=== PATIENT | female | born 2000 | race African-American/Black ===

== ENCOUNTER 2021-01-31 20:46 | Inpatient (IN) ==
[2021-01-31 21:33] LABS: ABS Eosinophils 0.1 10^3/ul (0-0.6); ABS Lymphocytes 2.1 10^3/ul (1.0-4.8); ABS Monocytes 0.7 10^3/ul (0-0.8); ABS Neutrophils 6.4 10^3/ul (1.5-7.7); Eosinophil % 1.1 %; Hematocrit 43 % (35-47); Hemoglobin 14.5 g/dL (12.0-16.0); Lymphocyte % 22.7 %; Mean Corpuscular HGB Conc 34 g/dL (31-36); Mean Corpuscular Hemoglobin 29 pg (27-31); Mean Corpuscular Volume 86 fL (80-97); Mean Platelet Volume 8.1 fL (7.4-10.4); Platelet Count 289 10^3/uL (150-450); Red Blood Count 5.03 10^6 /uL (3.70-4.87); Red Cell Distribution Width 14 % (10-15); White Blood Count 9.4 10^3/uL (3.5-10.8)
[2021-01-31 21:37] LABS: Urine Appearance Cloudy; Urine Bilirubin Negative (Negative); Urine Blood 3+ (Negative); Urine Color Yellow; Urine Glucose Negative (Negative); Urine Ketones 1+ (Negative); Urine Nitrite Positive (Negative); Urine Protein 1+(30 mg/dL) (Negative); Urine Specific Gravity 1.023 (1.002-1.030); Urine Urobilinogen Negative (Negative)
[2021-01-31 21:51] LABS: Acetaminophen < 15 mcg/mL; Alcohol, S < 13 mg/dL (<13); Salicylate < 2.50 mg/dL (<30); Urine Benzodiazepine Screen None Detected (None Detect); Urine Cannabinoids Screen None Detected (None Detect); Urine Opiates Screen None Detected (None Detect)
[2021-01-31 21:54] LABS: ALT 6 U/L (7-52); AST 12 U/L (13-39); Albumin/Globulin Ratio 1.6 (1-3); Alkaline Phosphatase 75 U/L (35-149); Anion Gap 8 mmol/L (2-11); Blood Urea Nitrogen 8 mg/dL (6-24); CO2 Carbon Dioxide 29 mmol/L (22-32); Calcium 10.4 mg/dL (8.6-10.3); Chloride 102 mmol/L (101-111); Globulin 3.2 g/dL (2-4); Glucose 83 mg/dL (70-100); Potassium 3.7 mmol/L (3.5-5.0); Sodium 139 mmol/L (135-145); Total Protein 8.2 g/dL (6.4-8.9); eGFR CKD-EPI 129.5 (>60)
[2021-01-31 21:57] LABS: Urine Bacteria 1+ (Absent); Urine Red Blood Cell 3+(>10/hpf) (Absent); Urine Squamous Epithelial Cell Present (Absent); Urine White Blood Cell 2+(11-20/hpf) (Absent)
[2021-01-31 22:01] LABS: HCG Pregnancy < 0.60 mIU/mL
[2021-01-31 22:06] LABS: TSH Ultra Thyroid Stim Horm 1.12 mcIU/mL (0.34-5.60)
[2021-02-01] MEDS ORDERED: Al Hydrox/Mg Hydrox/Simet LIQ 30 ML UDC PO PRN (06:50)
[2021-02-01] MEDS: Vitamin THERAPEUTIC TAB PO SCH (09:40)
[2021-02-02] MEDS: Vitamin THERAPEUTIC TAB PO SCH (07:26)
[2021-02-02 08:13] LABS: HDL Cholesterol 58.7 mg/dL
[2021-02-03] MEDS: Vitamin THERAPEUTIC TAB PO SCH (08:02)
[2021-02-03] MEDS ORDERED: Flu vaccine *QUAD* 2021-22* 0.5 ML SYRINGE IM ONE (10:00)
[2021-02-03] MEDS: Sulfamethox/Trimethoprim DS TAB 800/160 mg PO SCH (21:48)
[2021-02-04] MEDS: Sulfamethox/Trimethoprim DS TAB 800/160 mg PO SCH ×2 (09:19→21:20)
[2021-02-04] MEDS: Vitamin THERAPEUTIC TAB PO SCH (09:19)
[2021-02-04] MEDS ORDERED: Flu vaccine *QUAD* 2021-22* 0.5 ML SYRINGE IM ONE (10:00)
[2021-02-05] MEDS: Vitamin THERAPEUTIC TAB PO SCH (09:07)
[2021-02-05] MEDS: Sulfamethox/Trimethoprim DS TAB 800/160 mg PO SCH ×2 (09:07→19:53)
[2021-02-06 08:42] VITALS: BP 116/63
[2021-02-06] MEDS: Vitamin THERAPEUTIC TAB PO SCH (09:09)
[2021-02-06] MEDS: Sulfamethox/Trimethoprim DS TAB 800/160 mg PO SCH (09:09)
== END 2021-02-06 14:00 | disposition home or self-care (01) | DRG 885 ==
LOC: ED 20:46 → BSU 02-01 05:46
PROVIDERS: ADMIT Psychiatry & Neurology Psychiatry; ATTEND Psychiatry & Neurology Psychiatry

== ENCOUNTER 2022-05-08 19:15 | Inpatient (IN) ==
[2022-05-08 20:44] LABS: ABS Basophils 0.1 10^3/ul (0-0.2); ABS Eosinophils 0.3 10^3/ul (0-0.6); ABS Lymphocytes 3.1 10^3/ul (1.0-4.8); ABS Monocytes 0.7 10^3/ul (0-0.8); ABS Neutrophils 7.8 10^3/ul (1.5-7.7); Eosinophil % 2.4 %; Hematocrit 40 % (35-47); Hemoglobin 13.3 g/dL (12.0-16.0); Lymphocyte % 26.1 %; Mean Corpuscular HGB Conc 33 g/dL (31-36); Mean Corpuscular Hemoglobin 28 pg (27-31); Mean Corpuscular Volume 85 fL (80-97); Mean Platelet Volume 7.9 fL (7.4-10.4); Nucleated Red Blood Cells % 0.1; Platelet Count 280 10^3/uL (150-450); Red Blood Count 4.71 10^6 /uL (3.70-4.87); Red Cell Distribution Width 14 % (10-15); White Blood Count 11.9 10^3/uL (3.5-10.8)
[2022-05-08 21:14] LABS: ALT 9 U/L (7-52); AST 14 U/L (13-39); Albumin 4.5 g/dL (3.2-5.2); Albumin/Globulin Ratio 2.1 (1-3); Alcohol, S < 13 mg/dL (<13); Alkaline Phosphatase 66 U/L (35-149); Anion Gap 6 mmol/L (2-11); Blood Urea Nitrogen 15 mg/dL (6-24); CO2 Carbon Dioxide 29 mmol/L (22-32); Calcium 9.7 mg/dL (8.6-10.3); Chloride 103 mmol/L (101-111); Creatinine, Serum 0.66 mg/dL (0.51-0.95); Globulin 2.1 g/dL (2-4); Glucose 96 mg/dL (70-100); Potassium 4.2 mmol/L (3.5-5.0); Salicylate < 2.50 mg/dL (<30); Sodium 138 mmol/L (135-145); Total Protein 6.6 g/dL (6.4-8.9); eGFR CKD-EPI 128.7 (>60)
[2022-05-08 21:26] LABS: TSH Ultra Thyroid Stim Horm 1.46 mcIU/mL (0.34-5.60)
[2022-05-08 21:31] LABS: Acetaminophen < 15 mcg/mL
[2022-05-08 23:11] LABS: Urine Appearance Cloudy; Urine Bilirubin Negative (Negative); Urine Blood 2+ (Negative); Urine Color Straw; Urine Glucose Negative (Negative); Urine Ketones Negative (Negative); Urine Nitrite Negative (Negative); Urine Protein Negative (Negative); Urine Specific Gravity 1.005 (1.002-1.030); Urine Urobilinogen Negative (Negative)
[2022-05-08 23:26] LABS: Urine Bacteria 1+ (Absent); Urine Red Blood Cell Trace(0-2/hpf) (Absent); Urine Squamous Epithelial Cell Present (Absent); Urine White Blood Cell 1+(6-10/hpf) (Absent)
[2022-05-08 23:27] LABS: Urine Benzodiazepine Screen None Detected (None Detect); Urine Cannabinoids Screen None Detected (None Detect); Urine Opiates Screen None Detected (None Detect)
[2022-05-09] MEDS ORDERED: Al Hydrox/Mg Hydrox/Simet LIQ 30 ML UDC PO PRN (03:01)
[2022-05-09] MEDS ORDERED: Nicotine GUM 2MG FRUIT FLAVOR PO PRN (04:00)
[2022-05-09] MEDS: Vitamin THERAPEUTIC TAB PO SCH (09:19)
[2022-05-09 10:01] LABS: HCG Pregnancy < 0.60 mIU/mL
[2022-05-09 13:50] LABS: Chlamydia trachomatis NAA Negative (Negative); Neisseria gonorrhoeae (GC) NAA Negative (Negative)
[2022-05-10 07:51] VITALS: BP 114/69
[2022-05-10] MEDS: Vitamin THERAPEUTIC TAB PO SCH (08:40)
== END 2022-05-10 12:30 | disposition home or self-care (01) | DRG 882 ==
LOC: ED 19:15 → EDHOLD 05-09 01:59 → BSU 05-09 02:20
PROVIDERS: ADMIT Psychiatry & Neurology Psychiatry; ATTEND Psychiatry & Neurology Psychiatry